=== PATIENT | female | born 1985 | race Caucasian/White ===

== ENCOUNTER 2018-08-22 22:42 | Inpatient (IN) | payer BC, OTHER ==
[2018-08-23 01:11] LABS: BASO % 0.2 % (0-2.0); EOS % 1.3 % (0-4.5); HEMATOCRIT 35.8 % (32.4-45.2); HEMOGLOBIN 12.7 GM/dL (10.7-15.3); LYMPH % 17.2 % (8-40); MCH 29.5 pg (25.7-33.7); MCHC 35.4 g/dl (32.0-36.0); MEAN CELL VOLUME 83.2 fl (80-96); MEAN PLT VOLUME 9.7 fl (7.5-11.1); MONO % 8.7 % (3.8-10.2); NEUT % 72.6 % (42.8-82.8); PLATELET COUNT 179 K/MM3 (134-434); RDW 14.4 % (11.6-15.6)
[2018-08-23] MEDS ORDERED: ELECTROLYTE-148 SOLN 1,000 ML IV ONE ×2 (01:19→04:24)
[2018-08-23 01:24] LABS: INR 0.93 (0.83-1.09)
[2018-08-23 01:26] LABS: ACTIVATED PTT 23.9 SECONDS (25.2-36.5)
[2018-08-23 01:32] LABS: ANION GAP 10 MMOL/L (8-16); BLOOD UREA NITROGEN 4 mg/dL (7-18); CALCIUM 8.2 mg/dL (8.5-10.1); CHLORIDE 109 mmol/L (98-107); CO2 23 mmol/L (21-32); CREATININE 0.4 mg/dL (0.55-1.3); GLUCOSE,RANDOM 83 mg/dL (74-106); POTASSIUM 3.9 mmol/L (3.5-5.1); SODIUM 142 mmol/L (136-145)
[2018-08-23] MEDS ORDERED: CITRIC ACID/SODIUM CITRATE 30 ML UNIT-DOSE CUP PO ONE (09:54)
--- NOTE | 2018-08-23 10:01 | HP ---
Past Medical History - Primary Care Physician PCP:: Jamison Mei - Admission Chief Complaint: 37.4 weeks, previous c/s in labor History of Present Illness: 33 yo f g 3 [id number], ,37.4 weeks with previous c/s c/o contraction, vaginal spotting, cx 1 ft 50 vx -4 mi, fhr cat 1, irregular contraction . also requesting to have tubal ligation , aware risks of repeat c/s, aware BTL is permanent and not reversible .has small failure risk and risk of ectopic History Source: Patient Limitations to Obtaining History: No Limitations - Past Medical History ...: 3 ...Para: 1 ...Term: 1 ...: 0 ...Spon : 1 ...Induced : 0 ...LMP: 12/01/17 ... Weeks Gestation by Dates: 37.5 ...EDC by Dates: 09/07/18 ...EDC by Sono: 09/08/18 - Past Surgical History Past Surgical History: Yes: Hx Myomectomy: No Hx Transabdominal Cerclage: No - Smoking History Smoking history: Never smoked Have you smoked in the past 12 months: No Aproximately how many cigarettes per day: 0 - Alcohol/Substance Use Hx Alcohol Use: No - Social History Usual Living Arrangement: Yes: With Spouse History of Recent Travel: No Home Medications - Allergies Allergies/Adverse Reactions: Allergies Allergy/AdvReac Type Severity Reaction Status Date / Time No Known Allergies Allergy Verified 08/16/18 16:05 - Home Medications Home Medications: Ambulatory Orders NK [No Known Home Medication] 08/16/18 Review of Systems - Review of Systems Constitutional: reports: No Symptoms Eyes: reports: No Symptoms HENT: reports: No Symptoms Neck: reports: No Symptoms Cardiovascular: reports: No Symptoms Respiratory: reports: No Symptoms Gastrointestinal: reports: Abdominal Pain Genitourinary: reports: Vaginal Bleeding Breasts: reports: No Symptoms Reported Musculoskeletal: reports: No Symptoms Integumentary: reports: No Symptoms Neurological: reports: No Symptoms Endocrine: reports: No Symptoms Hematology/Lymphatic: reports: No Symptoms Psychiatric: reports: No Symptoms Physical Exam - Maternity Vital Signs: Vital Signs Temperature 98 F 08/22/18 23:30 Pulse Rate 93 H 08/23/18 09:00 Respiratory Rate 20 08/23/18 09:00 Blood Pressure 133/61 08/23/18 09:00 O2 Sat by Pulse Oximetry (%) Constitutional: Yes: Obese Eyes: Yes: WNL HENT: Yes: WNL Neck: Yes: WNL Cardiovascular: Yes: WNL Lungs: Normal air movement Breast(s): Yes: WNL - Abdominal Exam/OB Fundal Height: 40 Number of Fetuses: Single Presentation: Vertex Contractions: Yes Regularity: Irregular Intensity: Mod/Strong Monitor Mode: External Heart Rate Location: [facility] Category: I Accelerations: Uniform Decelerations: None - Vaginal Exam/OB Vaginal Bleediing: No Presentation: Vertex/Position Station: -4 - Physical Exam Extremities: Yes: WNL Edema: Yes Edema: LLE: Trace, RLE: Trace Integumentary: Yes: WNL Deep Tendon Reflex Grade: Normal +2 ...Motor Strength: WNL Psychiatric: Yes: WNL - Labs Lab Results: CBC, BMP 08/23/18 00:50 08/23/18 00:50 Hemorrhage Risk Assessment - Risk Factors Medium Risk Factors: Yes: Prior , uterine surgery,or multiple laparotomies Risk Score: 1 Risk Level: Medium Risk Problem List - Problems (1) with 37 weeks completed gestation Code(s): Z3A.37 - 37 WEEKS GESTATION OF (2) Previous section Code(s): Z98.891 - HISTORY OF UTERINE SCAR FROM PREVIOUS SURGERY (3) Labor established Code(s): TZB9159 - (4) Admission for sterilization Code(s): Z30.2 - ENCOUNTER FOR STERILIZATION Assessment/Plan , repeat c/s risks and benefit discussedwith patient , requesting repeat c/s , BTL
[2018-08-23 10:29] VITALS: BMI 36.8
[2018-08-23] MEDS ORDERED: ONDANSETRON 4 MG/2 ML VIAL IVPUSH PRN (10:40)
[2018-08-23] MEDS ORDERED: morphine SULFATE/Preservative Free 0.5 MG/ML (1cc Syringe) ONE (10:48)
[2018-08-23] MEDS ORDERED: OXYTOCIN 20 UNITS in 0.9% NS 20 UNIT/1,000 ML INFUS.BAG IV ONE (10:49)
[2018-08-23] MEDS ORDERED: ceFAZolin SODIUM 1 GM VIAL ONE (11:03)
[2018-08-23] MEDS ORDERED: OXYTOCIN 10 UNITS/ML VIAL ONE (11:09)
[2018-08-23] MEDS ORDERED: METHYLERGONOVINE MALEATE 0.2 MG/1 ML AMP IM PRN (11:55)
[2018-08-23] MEDS ORDERED: BENZOCAINE 20% 57 GM BOTTLE TP PRN (11:55)
[2018-08-23] MEDS ORDERED: WITCH HAZEL 50% (TUCKS) 40 PAD/JAR PAD TP PRN (11:55)
[2018-08-23] MEDS ORDERED: BENZOCAINE 28 GM HEMORRHOIDAL OINTMENT PR PRN (11:55)
[2018-08-23] MEDS ORDERED: diphenhydrAMINE HCL 25 MG CAPSULE (FP) PO PRN (11:55)
[2018-08-23] MEDS ORDERED: OXYTOCIN 20 UNITS in 0.9% NS 20 UNIT/1,000 ML INFUS.BAG IV SCH (12:00)
[2018-08-23] MEDS ORDERED: DEXTROSE 5%-LACTATED RINGERS 1,000 ML IV SCH (12:00)
--- NOTE | 2018-08-23 13:14 | OP ---
DATE OF OPERATION: 08/23/2018 PREOPERATIVE DIAGNOSIS: at 37.4 week gestation, previous section at labor, request of repeat section and tubal ligation. POSTOPERATIVE DIAGNOSIS: at 37.4 week gestation, previous section at labor, request of repeat section and tubal ligation. PROCEDURE: Repeat low segment transverse section and bilateral tubal ligation. SURGEON: Jamison Mei MD TREE [employer] SHRUB WORKER: David Rodriguez MD. ANESTHESIA: Spinal. ESTIMATED BLOOD LOSS: 500 mL. FINDINGS: Live baby boy, of 9 and 9. DESCRIPTION OF THE PROCEDURE: The patient was taken to the operating room and under adequate spinal anesthesia the abdomen and perineum were prepped and draped. Pfannenstiel abdominal skin incision was made over the previous incision. The abdominal wall was cut layer by layer and the peritoneum was exposed and incised. Upon entering the abdominal cavity there were several omental adhesions which were then lysed with the cautery. Then the lower uterine segment was identified and the uterovesical fold of peritoneum was established and the bladder was pushed down. A low thoracic incision was made and the incision extended laterally. The amniotic sac was entered. A large amount of amniotic fluid was noted and was clear. The head was delivered from the right occiput transverse position. The nasopharynx was suctioned. A live baby boy was delivered without any difficulty. The placenta was delivered manually. The uterine cavity was cleaned out of all remaining tissue. The uterine incision was closed in 2 layers; the first layer with a 0 Biosyn continuous suture, the second layer with 0 Biosyn imbricating the first layer, and the bladder flap was closed with a 0 Biosyn continuous suture. Both tubes and ovaries were rechecked and were normal and no active bleeding was seen. Then the right tube was grasped with a Ragini clamp and the right tube was doubly tied with 2-0 plain. A portion of tube was removed and the endosalpinx was cauterized and the procedure was repeated for the left tube. There was no active bleeding. All the lap pad, sponge and instrument counts were correct. The uterine cavity was thoroughly irrigated and then the peritoneum was closed with a 0 Biosyn continuous suture, the muscles were brought together with an interrupted suture of 0 Biosyn, the fascia was closed with a 0 Biosyn continuous suture, the subcutaneous fat with an interrupted suture with 0 Biosyn, and the skin was closed with a 3-0 Vicryl subcuticular continuous suture. The patient tolerated the procedure well and left the OR in good condition. JAMISON MEI M.D. [id number]
[2018-08-23] MEDS ORDERED: TUBERCULIN PPD 5 TU/0.1ML SYRINGE (IN PATIENT USE ONLY) ID ONE (16:15)
[2018-08-23] MEDS: CEFAZOLIN 1 GM/D5W 1 GM/50 ML BAG IVPB SCH (17:06)
[2018-08-23] MEDS: IBUPROFEN 800 MG/8 ML IJ IVPB PRN (23:57)
[2018-08-24] MEDS: CEFAZOLIN 1 GM/D5W 1 GM/50 ML BAG IVPB SCH (01:36)
[2018-08-24] MEDS: IBUPROFEN 800 MG/8 ML IJ IVPB PRN (05:46)
[2018-08-24 06:01] LABS: BASO % 0.3 % (0-2.0); EOS % 1.3 % (0-4.5); HEMOGLOBIN 11.7 GM/dL (10.7-15.3); LYMPH % 14.9 % (8-40); MCH 28.6 pg (25.7-33.7); MCHC 34.3 g/dl (32.0-36.0); MEAN CELL VOLUME 83.3 fl (80-96); MEAN PLT VOLUME 9.1 fl (7.5-11.1); MONO % 8.1 % (3.8-10.2); NEUT % 75.4 % (42.8-82.8); PLATELET COUNT 154 K/MM3 (134-434); RBC 4.08 M/mm3 (3.60-5.2); RDW 14.5 % (11.6-15.6); WHITE BLOOD COUNT 15.2 K/mm3 (4.0-10.0)
--- NOTE | 2018-08-24 08:05 | PN ---
Progress Note (short form) - Note Progress Note: Anesthesai/Pain pt seen and examined S:Alert and awake O: Vital Signs Temperature 97.9 F 08/24/18 06:00 Pulse Rate 98 H 08/24/18 06:00 Respiratory Rate 20 08/24/18 06:00 Blood Pressure 113/72 08/24/18 06:00 O2 Sat by Pulse Oximetry (%) 100 08/23/18 13:15 CBC, BMP 08/24/18 05:55 08/23/18 00:50 a/p: Current Active Problems Admission for sterilization (Acute) Labor established (Acute) with 37 weeks completed gestation (Acute) Previous section (Acute) s/p c section Doing well post op Continue current care Michael Champagne MD
[2018-08-24] MEDS: oxyCODONE HCL 5 MG TABLET PO PRN ×4 (10:00→23:36)
[2018-08-24] MEDS: ACETAMINOPHEN 325 MG TABLET (FP) PO PRN ×3 (10:00→23:36)
[2018-08-24] MEDS: SIMETHICONE 80 MG TAB.CHEW (FP) PO PRN ×4 (10:01→23:37)
[2018-08-24] MEDS: ENOXAPARIN NA (PORCINE) 40 MG/0.4 ML DISP.SYRIN SQ SCH (10:01)
[2018-08-24] MEDS ORDERED: BISACODYL 10 MG SUPP.RECT PR PRN (11:55)
[2018-08-24] MEDS: IBUPROFEN 600 MG TABLET (FP) PO PRN ×3 (13:52→23:37)
--- NOTE | 2018-08-24 20:27 | PN ---
Progress Note (short form) - Note Progress Note: pod 1 s/p repeat c/s , voids ok, no excess vaginal bleeding CBC, BMP 08/24/18 05:55 08/23/18 00:50 Last Vital Signs Temp Pulse Resp BP Pulse Ox 97.9 F 91 H 20 105/64 100 08/24/18 08:30 08/24/18 08:30 08/24/18 10:00 08/24/18 08:30 08/23/18 13:15 abdomen soft, no distension, no cva incision dry, clean no calf tenderness pod 1 afebrile plan ambulate, advance diet pain management Problem List - Problems (1) with 37 weeks completed gestation Code(s): Z3A.37 - 37 WEEKS GESTATION OF (2) Previous section Code(s): Z98.891 - HISTORY OF UTERINE SCAR FROM PREVIOUS SURGERY (3) Labor established Code(s): KDI2254 - (4) Admission for sterilization Code(s): Z30.2 - ENCOUNTER FOR STERILIZATION
[2018-08-24] MEDS: SENNOSIDES/DOCUSATE COMBO (SENNA PLUS) TABLET (UD) PO PRN (21:20)
[2018-08-25] MEDS: IBUPROFEN 600 MG TABLET (FP) PO PRN ×5 (07:30→21:05)
[2018-08-25] MEDS: ACETAMINOPHEN 325 MG TABLET (FP) PO PRN ×3 (07:31→21:06)
[2018-08-25] MEDS: oxyCODONE HCL 5 MG TABLET PO PRN ×4 (07:32→21:05)
--- NOTE | 2018-08-25 09:30 | PN ---
Post Progress Note - Subjective Subjective: No complaints, ambullating. Breast feeding w/o problems Post Day: 2 Type of Delivery: Repeat C/S Vital Signs: Vital Signs Temperature 98.3 F 08/25/18 08:00 Pulse Rate 99 H 08/25/18 08:00 Respiratory Rate 18 08/25/18 08:00 Blood Pressure 118/71 08/25/18 08:00 O2 Sat by Pulse Oximetry (%) 100 08/23/18 13:15 Breast Exam: Yes: Soft Uterus: Yes: Fundus Firm, Fundus below umbilicus, Non-tender Incision: Yes: Dressing dry and intact Abdomen/GI: Yes: Abdomen soft, Passing flatus, Tolerating PO Lochia: Yes: Rubra Lochia, amount: Small Extremities: Yes: Calves non-tender, Edema (trace) Perineum: Yes: Intact Activity: Ambulating - Labs Labs: CBC WBC 15.2 K/mm3 (4.0-10.0) H 08/24/18 05:55 RBC 4.08 M/mm3 (3.60-5.2) 08/24/18 05:55 Hgb 11.7 GM/dL (10.7-15.3) 08/24/18 05:55 Hct 34.0 % (32.4-45.2) 08/24/18 05:55 MCV 83.3 fl (80-96) 08/24/18 05:55 MCH 28.6 pg (25.7-33.7) 08/24/18 05:55 MCHC 34.3 g/dl (32.0-36.0) 08/24/18 05:55 RDW 14.5 % (11.6-15.6) 08/24/18 05:55 Plt Count 154 K/MM3 (134-434) 08/24/18 05:55 MPV 9.1 fl (7.5-11.1) 08/24/18 05:55 Absolute Neuts (auto) 11.5 K/mm3 (1.5-8.0) H 08/24/18 05:55 Neutrophils % 75.4 % (42.8-82.8) 08/24/18 05:55 Lymphocytes % 14.9 % (8-40) 08/24/18 05:55 Monocytes % 8.1 % (3.8-10.2) 08/24/18 05:55 Eosinophils % 1.3 % (0-4.5) 08/24/18 05:55 Basophils % 0.3 % (0-2.0) 08/24/18 05:55 Nucleated RBC % 0 % (0-0) 08/24/18 05:55 Assessment/Plan 33yo P2 s/p repeat LT C/S, doing well stable, afebrile. care instructions reviewed. Continue routine postop care. Ambulation encouraged.
--- NOTE | 2018-08-25 09:33 | DS ---
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: Vital Signs Temperature 98.3 F 08/25/18 08:00 Pulse Rate 99 H 08/25/18 08:00 Respiratory Rate 18 08/25/18 08:00 Blood Pressure 118/71 08/25/18 08:00 O2 Sat by Pulse Oximetry (%) 100 08/23/18 13:15 Constitutional: Yes: Well Nourished, No Distress, Calm Eyes: Yes: WNL, Conjunctiva Clear HENT: Yes: WNL, Atraumatic, Normocephalic Neck: Yes: WNL, Supple, Trachea Midline Cardiovascular: Yes: WNL, Regular Rate and Rhythm Respiratory: Yes: WNL, Regular, CTA Bilaterally Gastrointestinal: Yes: WNL, Normal Bowel Sounds, Soft, Abdomen, Obese ...Rectal Exam: Yes: Deferred Renal/: Yes: WNL ....Post : Yes: Uterus firm, Uterus non-tender, Slight lochia rubra Breast(s): Yes: WNL Musculoskeletal: Yes: WNL Extremities: Yes: WNL Edema: Yes Edema: LLE: Trace, RLE: Trace Integumentary: Yes: WNL Wound/Incision: Yes: Clean/Dry, Well Approximated, Open to air Neurological: Yes: WNL, Alert, Oriented ...Motor Strength: WNL Psychiatric: Yes: WNL, Alert, Oriented Labs: CBC, BMP 08/24/18 05:55 08/23/18 00:50 Delivery - Delivery Section: Repeat, Low Flap Transverse Type of Anesthesia: Spinal Episiotomy/Laceration: None EBL (cc): 500 Delivery, Single - Stages of Labor Date 1st Stage Initiatied: 08/22/18 Time 1st Stage Initiated: 20:00 Date 2nd Stage Initiated: 08/23/18 Date of Delivery: 08/23/18 Time of Delivery: 11:16 Time Placenta Delivered: 11:17 Placenta: Yes: Manual Removal - Condition of Infant 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 Transportation Present: Yes Name: Monse Alfaro Gender: Male Weight: 4.139 kg Position: Right, OA Total Hours ROM (Hrs/Mins): 2 MINS - 1 Minute Total Score: 9 5 Minutes Total Score: 9 - Feeding Plan Initial Plan: Exclusive throughout hospitalization Discharge Summary Reason For Visit: REPEAT Current Active Problems Admission for sterilization (Acute) Labor established (Acute) with 37 weeks completed gestation (Acute) Previous section (Acute) Procedures: Principal: Repeat LT C/S Other Procedures: BTL Hospital Course: Normal recovery Condition: Good - Instructions Diet, Activity, Other Instructions: Physical activity Resume your normal everyday activity as tolerated no heavy lifting or exercise until seen by your surgeon. You may walk unlimited maldonado of and climb stairs. You may resume driving the car when you feel safe and comfortable behind the wheel. No sexual activity as instructed. Wound care If you have a bandage, leave it on, and keep dry for 48-72 hours. After that time discard the outer bandage. If they are tapes on the skin under the out of bandage leave them in place. They will peel off in the next 7 to 10 days. Do Not Peel them off. You may shower the day after surgery. If there are tapes present on the skin, you may shower over them. Diet There are no dietary restrictions. Eat healthy, high-fiber foods. Drink 6 to 8 glasses of liquid each day. This will assist in keeping your bowels are regular. Pain management You may take Tylenol or acetaminophen or Ibuprofen (for example, Motrin, Advil etc.) from my pain prescription medication is ordered should be taken as prescribed for moderate to severe pain. Call MD for any of the following: Severe pain not relieved by medication Fever of 101 or higher Excessive bleeding or drainage on dressing Inability to urinate Referrals: Jose Green MD [Staff Physician] - Disposition: HOME - Home Medications Comprehensive Discharge Medication List: Ambulatory Orders NK [No Known Home Medication] 08/16/18
[2018-08-25] MEDS: ENOXAPARIN NA (PORCINE) 40 MG/0.4 ML DISP.SYRIN SQ SCH (10:14)
[2018-08-25] MEDS: SIMETHICONE 80 MG TAB.CHEW (FP) PO PRN ×3 (11:44→21:06)
[2018-08-25] MEDS: SENNOSIDES/DOCUSATE COMBO (SENNA PLUS) TABLET (UD) PO PRN (21:06)
[2018-08-26] MEDS: IBUPROFEN 600 MG TABLET (FP) PO PRN ×3 (04:56→19:32)
[2018-08-26] MEDS: oxyCODONE HCL 5 MG TABLET PO PRN ×2 (04:57→10:05)
[2018-08-26 06:06] LABS: BASO % 0.3 % (0-2.0); EOS % 2.1 % (0-4.5); HEMATOCRIT 31.5 % (32.4-45.2); HEMOGLOBIN 10.6 GM/dL (10.7-15.3); LYMPH % 19.7 % (8-40); MCH 28.4 pg (25.7-33.7); MCHC 33.7 g/dl (32.0-36.0); MEAN CELL VOLUME 84.2 fl (80-96); MEAN PLT VOLUME 8.5 fl (7.5-11.1); MONO % 7.7 % (3.8-10.2); NEUT % 70.2 % (42.8-82.8); PLATELET COUNT 187 K/MM3 (134-434); RBC 3.75 M/mm3 (3.60-5.2); RDW 14.6 % (11.6-15.6); WHITE BLOOD COUNT 10.9 K/mm3 (4.0-10.0)
--- NOTE | 2018-08-26 06:48 | PN ---
Post Progress Note - Subjective Subjective: Patient without acute complaints. Reports tolerating oral intake without nausea or vomiting. Ambulating without dizziness. Denies fevers or chills. Pain well controlled with oral pain medication. Passing flatus. Post Day: 3 Type of Delivery: Repeat C/S Vital Signs: Vital Signs Temperature 98 F 08/25/18 22:00 Pulse Rate 94 H 08/25/18 22:00 Respiratory Rate 18 08/25/18 22:00 Blood Pressure 133/64 08/25/18 22:00 O2 Sat by Pulse Oximetry (%) 100 08/23/18 13:15 Breast Exam: Yes: Soft Uterus: Yes: Fundus Firm, Fundus below umbilicus Incision: Yes: Sutures intact Abdomen/GI: Yes: Abdomen soft, Passing flatus, Tolerating PO Lochia: Yes: Rubra Lochia, amount: Small Extremities: Yes: Calves non-tender, Edema Perineum: Yes: Intact Activity: Ambulating - Labs Labs: CBC WBC 10.9 K/mm3 (4.0-10.0) H 08/26/18 05:56 RBC 3.75 M/mm3 (3.60-5.2) 08/26/18 05:56 Hgb 10.6 GM/dL (10.7-15.3) L 08/26/18 05:56 Hct 31.5 % (32.4-45.2) L 08/26/18 05:56 MCV 84.2 fl (80-96) 08/26/18 05:56 MCH 28.4 pg (25.7-33.7) 08/26/18 05:56 MCHC 33.7 g/dl (32.0-36.0) 08/26/18 05:56 RDW 14.6 % (11.6-15.6) 08/26/18 05:56 Plt Count 187 K/MM3 (134-434) D 08/26/18 05:56 MPV 8.5 fl (7.5-11.1) 08/26/18 05:56 Absolute Neuts (auto) 7.6 K/mm3 (1.5-8.0) 08/26/18 05:56 Neutrophils % 70.2 % (42.8-82.8) 08/26/18 05:56 Lymphocytes % 19.7 % (8-40) D 08/26/18 05:56 Monocytes % 7.7 % (3.8-10.2) 08/26/18 05:56 Eosinophils % 2.1 % (0-4.5) 08/26/18 05:56 Basophils % 0.3 % (0-2.0) 08/26/18 05:56 Nucleated RBC % 0 % (0-0) 08/26/18 05:56 Assessment/Plan 33yo P2 s/p repeat LT C/S, POD#3, doing well stable, afebrile. Asymptomatic for anemia care instructions reviewed. Discharge instructions reviewed. Continue routine postop care. Ambulation encouraged.
[2018-08-26] MEDS: SIMETHICONE 80 MG TAB.CHEW (FP) PO PRN ×3 (10:05→19:32)
[2018-08-26] MEDS: ENOXAPARIN NA (PORCINE) 40 MG/0.4 ML DISP.SYRIN SQ SCH (11:14)
[2018-08-26] MEDS ORDERED: oxyCODONE HCL 5 MG TABLET PO PRN ×2 (14:04→14:05)
[2018-08-26] MEDS: ACETAMINOPHEN 325 MG TABLET (FP) PO PRN (14:12)
[2018-08-26 21:50] VITALS: PULSE 92
[2018-08-27 07:56] VITALS: BP 131/72; TEMP 98.6
[2018-08-27] MEDS: ACETAMINOPHEN 325 MG TABLET (FP) PO PRN (08:25)
[2018-08-27] MEDS: IBUPROFEN 600 MG TABLET (FP) PO PRN (08:25)
[2018-08-27] MEDS: SIMETHICONE 80 MG TAB.CHEW (FP) PO PRN (08:26)
--- NOTE | 2018-08-27 08:46 | PN ---
Post Progress Note - Subjective Subjective: Patient without acute complaints. Reports tolerating oral intake without nausea or vomiting. Ambulating without dizziness. Denies fevers or chills. Pain well controlled with oral pain medication. without difficulty. Passing flatus. Post Day: 3 Type of Delivery: Repeat C/S Vital Signs: Vital Signs Temperature 98.6 F 08/27/18 07:54 Pulse Rate 92 H 08/27/18 07:54 Respiratory Rate 20 08/27/18 07:54 Blood Pressure 131/72 08/27/18 07:54 O2 Sat by Pulse Oximetry (%) 100 08/23/18 13:15 Breast Exam: Yes: Engorged Uterus: Yes: Fundus Firm, Fundus below umbilicus Incision: Yes: Sutures intact. No: Redness, Oozing Abdomen/GI: Yes: Abdomen soft, Tender (mild incisional), Passing flatus, Tolerating PO. No: Abdominal Distention Lochia: Yes: Serosa Lochia, amount: Small Extremities: Yes: Calves non-tender, Edema (trace) Activity: Ambulating - Labs Labs: CBC WBC 10.9 K/mm3 (4.0-10.0) H 08/26/18 05:56 RBC 3.75 M/mm3 (3.60-5.2) 08/26/18 05:56 Hgb 10.6 GM/dL (10.7-15.3) L 08/26/18 05:56 Hct 31.5 % (32.4-45.2) L 08/26/18 05:56 MCV 84.2 fl (80-96) 08/26/18 05:56 MCH 28.4 pg (25.7-33.7) 08/26/18 05:56 MCHC 33.7 g/dl (32.0-36.0) 08/26/18 05:56 RDW 14.6 % (11.6-15.6) 08/26/18 05:56 Plt Count 187 K/MM3 (134-434) D 08/26/18 05:56 MPV 8.5 fl (7.5-11.1) 08/26/18 05:56 Absolute Neuts (auto) 7.6 K/mm3 (1.5-8.0) 08/26/18 05:56 Neutrophils % 70.2 % (42.8-82.8) 08/26/18 05:56 Lymphocytes % 19.7 % (8-40) D 08/26/18 05:56 Monocytes % 7.7 % (3.8-10.2) 08/26/18 05:56 Eosinophils % 2.1 % (0-4.5) 08/26/18 05:56 Basophils % 0.3 % (0-2.0) 08/26/18 05:56 Nucleated RBC % 0 % (0-0) 08/26/18 05:56 Assessment/Plan 33 yo POD # 3/ sp R CD, afebrile, vital sign stable, doing well 1. Patient stable for discharge home today. 2. Patient encouraged to contact MD for: - Severe pain not controlled by oral pain medication - Fevers or chills - Nausea or vomiting, intolerance of oral intake - Incision redness, tenderness or discharge 3. Patient to follow up in office in 1-2 weeks for incision check, 4-6 weeks for visit
[2018-08-27] MEDS: ENOXAPARIN NA (PORCINE) 40 MG/0.4 ML DISP.SYRIN SQ SCH (09:42)
--- NOTE | 2018-09-01 17:32 | PATH ---
Surgical Pathology Report Patient Name: LEONELA DUKES [facility]. Rec. #: [id number] /Age/Gender: 1985 (Age: 33) / F Account: [id number] Location: [facility] OBS/CONTINUING EDUCATION DEAN Taken: 08/23/2018 Received: 08/24/2018 Reported: 09/01/2018 Physicians: Jamison Mei M.D. Specimen(s) Received A: PLACENTA B: RIGHT FALLOPIAN TUBE C: LEFT FALLOPIAN TUBE Clinical History , 37.5 weeks gestation, previous 01/2013, no other medical history Final Diagnosis A. PLACENTA, SECTION: 601 G THIRD TRIMESTER PLACENTA WITH TRIVASCULAR UMBILICAL CORD AND UNREMARKABLE PLACENTAL MEMBRANES. B. FALLOPIAN TUBE, RIGHT, PARTIAL EXCISION: FULL LUMINAL PORTION OF UNREMARKABLE FALLOPIAN TUBE. C. FALLOPIAN TUBE, LEFT, PARTIAL EXCISION: FULL LUMINAL PORTION OF UNREMARKABLE FALLOPIAN TUBE. Electronically Signed Phyllis Ramirez M.D. Gross Description A. The specimen is received fresh labeled placenta and is a 601 gram, 13.5 x 15.0 x 3.4 cm. placenta with attached membranes and umbilical cord. The attached membranes are dietz, translucent with focal opacities and insert marginally. The umbilical cord measures 36 cm. in length and averages 1.2 cm. in diameter. The cord inserts eccentrically, 2 cm. to the nearest margin. No true knots or strictures are identified. Cut surface of the umbilical cord reveals 3 vessels. The surface is portillo blue with moderate fibrin deposition and appropriate caliber vessels. The maternal surface is red-brown with focal defects. Sectioning reveals red-brown, spongy parenchyma. No lesions are identified. 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 B. Received in formalin labeled "right tube," is a 1.7 cm in length portion of fallopian tube. No fimbria are present. The outer surface is dietz-robertson and smooth. Sectioning reveals an unremarkable lumen. Motor Coach Tour Operator sections are submitted in one cassette. C. Received in formalin labeled "left tube," is a 1.8 cm in length portion of fallopian tube. No fimbria are present. The outer surface is dietz-robertson and smooth. Sectioning reveals an unremarkable lumen. Motor Coach Tour Operator sections are submitted in one cassette. 08/31/2018 [facility]08/31/2018
== END 2018-08-27 13:45 | disposition home or self-care (01) | DRG 785 ==
LOC: JDEL 22:42 → JLDR 08-23 09:40 → J3W 08-23 14:11
PROVIDERS: ADMIT Obstetrics & Gynecology; ATTEND Obstetrics & Gynecology
PROC: 10D00Z1 Extraction of Products of Conception, Low, Open Approach (ICD-10-PCS; principal; 2018-08-23)
PROC: 0UL70ZZ Occlusion of Bilateral Fallopian Tubes, Open Approach (ICD-10-PCS; 2018-08-23)
DX: O34.211 Maternal care for low transverse scar from previous cesarean delivery (principal); O99.213 Obesity complicating pregnancy, third trimester; E66.9 Obesity, unspecified; Z3A.37 37 weeks gestation of pregnancy; Z37.0 Single live birth; Z30.2 Encounter for sterilization
CPT/HCPCS: 36415; 80048; 85025; 85610; 85730; 86593; 86850; 86900; 86901; 87389; 88302-TC; 88307-TC